=== PATIENT | female | born 1995 | race Caucasian/White ===

== ENCOUNTER 2019-02-01 17:20 | Emergency (ER) | payer BC ==
[2019-02-01] MEDS ORDERED: NA CHLORIDE 0.9% 1,000 ML ONE (18:06)
[2019-02-01 18:13] LABS: Absolute Lymphocytes (CBC) 3.3 K/uL (0.7-4.9); Basophils % 1.3 % (0-1.3); Eosinophils % 2.2 % (0-4.4); Hematocrit 40.7 % (36.0-45.0); Lymphocytes % 42.8 % (15.3-44.8); MPV 8.3 fL (7.6-11.3); Monocytes % 9.8 % (3.3-12.3); RBC Red Blood Cell Count 4.48 M/uL (3.86-4.86)
[2019-02-01 18:32] LABS: BUN Blood Urea Nitrogen 12 mg/dL (7-18); Bicarbonate 26 mmol/L (21-32); Glucose Level 87 mg/dL (74-106); Potassium 3.6 mmol/L (3.5-5.1); Sodium Level 143 mmol/L (136-145)
[2019-02-01 18:43] LABS: HCG, Quantitative < 1 mIU/mL (1-3)
[2019-02-01 18:45] LABS: Urine Blood 3+ (NEG); Urine Glucose NEGATIVE (NEG); Urine Protein 2+ (NEG); Urine Specific Gravity 1.025 (1.005-1.030)
--- NOTE | 2019-02-01 19:04 | ER ---
Nurse's Notes [facility] Name: Konstantin Ferguson Age: 23 yrs Sex: Female : 1995 Arrival Date: 02/01/2019 Time: 17:24 Bed 25 Private MD: Diagnosis: Dysmenorrhea, unspecified Presentation: 02/01 17:29 Presenting complaint: Patient states: LMP- 12/29/18; i took a home test Thursday and it says positive; and i started spotting yesterday and today its getting heavier, i noticed blood clot; reports lower back pain;. Transition of care: patient was not received from another setting of care. Onset of symptoms was February 01, 2019. Risk Assessment: Do you want to hurt yourself or someone else? Patient reports no desire to harm self or others. Initial Sepsis Screen: Does the patient meet any 2 criteria? No. Patient's initial sepsis screen is negative. Does the patient have a suspected source of infection? No. Patient's initial sepsis screen is negative. Care prior to arrival: None. 17:29 Method Of Arrival: Ambulatory 17:29 Acuity: JACEY 3 Triage Assessment: 17:50 General: Behavior is calm, cooperative. 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 - Social history:: Smoking status: unknown. - Family history:: not pertinent. - Ebola Screening: : No symptoms or risks identified at this time. Screenin:00 Abuse screen: Denies threats or abuse. Denies injuries from another. Nutritional mg2 screening: No deficits noted. Tuberculosis screening: No symptoms or risk factors identified. Fall Risk IV access (20 points). Assessment: 18:57 Obstetrical Assessment: General assessment: awake and alert. General: Appears in no mg2 apparent distress. comfortable. Pain: Complains of pain in back Pain does not radiate. Pain currently is 2 out of 10 on a pain scale. Quality of pain is described as aching, crampy, Pain began 1 day ago. Neuro: Level of Consciousness is awake, alert, obeys commands, Oriented to person, place, time, situation. Cardiovascular: Capillary refill < 3 seconds Patient's skin is warm and dry. Respiratory: Airway is patent Respiratory effort is even, unlabored, Respiratory pattern is regular, symmetrical. GI: No signs and/or symptoms were reported involving the gastrointestinal system. : Reports vaginal bleeding that is light flow, spotty, since morning. EENT: No signs and/or symptoms were reported regarding the EENT system. Derm: Skin is intact, is healthy with good turgor, Skin is pink, warm \T\ dry. normal. 19:27 Reassessment: Patient appears in no apparent distress at this time. Patient denies pain mg2 at this time. Vital Signs: 17:31 BP 110 / 61; Pulse 86; Resp 18; Temp 98.2(O); Pulse Ox 99% on R/A; Weight 89.81 kg; hj Height 5 ft. 3 in. (160.02 cm); Pain 5/10; 19:27 BP 120 / 78; Pulse 85; Resp 18; Temp 98; Pulse Ox 100% on R/A; Pain 0/10; mg2 17:31 Body Mass Index 35.07 (89.81 kg, 160.02 cm) hj Vitals: 19:30 Heart Tones not done. mg2 ED Course: 17:24 Patient arrived in ED. rg4 17:30 Triage completed. hj 17:31 Arm band placed on right wrist. hj 17:39 Dev Perdue MD is Attending Physician. katelyn 17:49 Jhoan Lewis RN is Primary Nurse. mg2 17:50 Patient has correct armband on for positive identification. mg2 18:04 No provider procedures requiring assistance completed. Inserted saline lock: 20 gauge mg2 in left antecubital area, using aseptic technique. Blood collected. 18:10 Radiology exam delayed due to lab results not completed at this time. (HCG). aa4 18:55 Transvaginal Ob In Process Unspecified. EDMS 19:01 Sami Singleton MD is Referral Physician. katelyn 19:29 IV discontinued, intact, bleeding controlled, No redness/swelling at site. Pressure mg2 dressing applied. Administered Medications: 18:04 Drug: NS 0.9% 1000 ml Route: IV; Rate: 1 bolus; Site: left antecubital; mg2 19:00 Follow up: Response: No adverse reaction; IV Status: Completed infusion; IV Intake: mg2 1000ml Point of Care Testing: Urine : 18:50 hCG Reading: Negative; Control Reading: Positive; mg2 Intake: 19:00 IV: 1000ml; Total: 1000ml. mg2 Outcome: 19:03 Discharge ordered by . katelyn 19:29 Discharged to home ambulatory, with family. mg2 19:29 Condition: stable 19:29 Discharge instructions given to patient, Instructed on discharge instructions, follow up and referral plans. medication usage, Demonstrated understanding of instructions, follow-up care, medications, Prescriptions given X 1. 19:31 Patient left the ED. mg2 Signatures: Dispatcher [employer] EDMS Dev Perdue MD MD cha Frazier, Amanda aa4 Meng Manley, CAITLIN RN Paulina Bradley rg4 Jhoan Lewis RN RN mg2 Corrections: (The following items were deleted from the chart) 17:33 17:31 Pulse 86bpm; Resp 18bpm; Pulse Ox 99% RA; Temp 98.2F Oral; 89.81 kg; Height 5 ft. hj 3 in.; BMI: 35.0; Pain 5/10; hj
--- NOTE | 2019-02-01 19:04 | EDPHYS ---
Physician Documentation [facility] Name: Konstantin Ferguson Age: 23 yrs Sex: Female : 1995 Arrival Date: 02/01/2019 Time: 17:24 Bed 25 Private MD: ED Physician Dev Perdue HPI: 02/01 18:05 This 23 yrs old Female presents to ER via Ambulatory with complaints of katelyn Vaginal Bleeding, + Preg <12wks. 18:05 The patient presents to the emergency department with vaginal bleeding. The estimated katelyn gestational age is 3 weeks. course: care: none. The patient has not experienced similar symptoms in the past. 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 - Social history:: Smoking status: unknown. - Family history:: not pertinent. - Ebola Screening: : No symptoms or risks identified at this time. ROS: 18:05 Constitutional: Negative for fever, chills, and weight loss, Eyes: Negative for injury, katelyn pain, redness, and discharge, ENT: Negative for injury, pain, and discharge, Neck: Negative for injury, pain, and swelling, Cardiovascular: Negative for chest pain, palpitations, and edema, Respiratory: Negative for shortness of breath, cough, wheezing, and pleuritic chest pain, Abdomen/GI: Negative for abdominal pain, nausea, vomiting, diarrhea, and constipation, Back: Negative for injury and pain, MS/Extremity: Negative for injury and deformity, Skin: Negative for injury, rash, and discoloration, Neuro: Negative for headache, weakness, numbness, tingling, and seizure, Psych: Negative for depression, anxiety, suicide ideation, homicidal ideation, and hallucinations, Allergy/Immunology: Negative for hives, rash, and allergies, Endocrine: Negative for neck swelling, polydipsia, polyuria, polyphagia, and marked weight changes, Hematologic/Lymphatic: Negative for swollen nodes, abnormal bleeding, and unusual bruising. 18:05 : Positive for vaginal bleeding. Exam: 18:05 Constitutional: This is a well developed, well nourished patient who is awake, alert, katelyn and in no acute distress. Head/Face: Normocephalic, atraumatic. Eyes: Pupils equal round and reactive to light, extra-ocular motions intact. Lids and lashes normal. Conjunctiva and sclera are non-icteric and not injected. Cornea within normal limits. Periorbital areas with no swelling, redness, or edema. ENT: Nares patent. No nasal discharge, no septal abnormalities noted. Tympanic membranes are normal and external auditory canals are clear. Oropharynx with no redness, swelling, or masses, exudates, or evidence of obstruction, uvula midline. Mucous membranes moist. Neck: Trachea midline, no thyromegaly or masses palpated, and no cervical lymphadenopathy. Supple, full range of motion without nuchal rigidity, or vertebral point tenderness. No Meningismus. Chest/axilla: Normal chest wall appearance and motion. Nontender with no deformity. No lesions are appreciated. Cardiovascular: Regular rate and rhythm with a normal S1 and S2. No gallops, murmurs, or rubs. Normal PMI, no JVD. No pulse deficits. Respiratory: Lungs have equal breath sounds bilaterally, clear to auscultation and percussion. No rales, rhonchi or wheezes noted. No increased work of breathing, no retractions or nasal flaring. Abdomen/GI: Soft, non-tender, with normal bowel sounds. No distension or tympany. No guarding or rebound. No evidence of tenderness throughout. Back: No spinal tenderness. No costovertebral tenderness. Full range of motion. Skin: Warm, dry with normal turgor. Normal color with no rashes, no lesions, and no evidence of cellulitis. MS/ Extremity: Pulses equal, no cyanosis. Neurovascular intact. Full, normal range of motion. Neuro: Awake and alert, GCS 15, oriented to person, place, time, and situation. Cranial nerves II-XII grossly intact. Motor strength 5/5 in all extremities. Sensory grossly intact. Cerebellar exam normal. Normal gait. Psych: Awake, alert, with orientation to person, place and time. Behavior, mood, and affect are within normal limits. Vital Signs: 17:31 BP 110 / 61; Pulse 86; Resp 18; Temp 98.2(O); Pulse Ox 99% on R/A; Weight 89.81 kg; Height 5 ft. 3 in. (160.02 cm); Pain 5/10; 19:27 BP 120 / 78; Pulse 85; Resp 18; Temp 98; Pulse Ox 100% on R/A; Pain 0/10; mg2 17:31 Body Mass Index 35.07 (89.81 kg, 160.02 cm) hj MDM: 17:39 Patient medically screened. [facility] 18:09 Data reviewed: vital signs, nurses notes, lab test result(s), radiologic studies, [facility] ultrasound. 02/01 17:43 Order name: Quantitative Hcg; Complete Time: 18:57 [facility] 02/01 17:43 Order name: Abo/rh Typing [facility] 02/01 17:43 Order name: Basic Metabolic Panel; Complete Time: 18:57 [facility] 02/01 17:43 Order name: CBC with Diff; Complete Time: 18:57 [facility] 02/01 18:25 Order name: Urine Dipstick--Ancillary (enter results); Complete Time: 18:57 02/01 18:25 Order name: Urine --Ancillary (enter results); Complete Time: 18:57 02/01 17:33 Order name: Urine Dipstick-Ancillary (obtain specimen); Complete Time: 18:04 02/01 17:33 Order name: Urine Test (obtain specimen); Complete Time: 18:04 02/01 17:43 Order name: IV Saline Lock; Complete Time: 18:04 [facility] 02/01 17:43 Order name: Labs collected and sent; Complete Time: 18:04 [facility] 02/01 17:43 Order name: NPO; Complete Time: 18:04 [facility] 02/01 17:43 Order name: US Transvaginal Ob [facility] Administered Medications: 18:04 Drug: NS 0.9% 1000 ml Route: IV; Rate: 1 bolus; Site: left antecubital; mg2 19:00 Follow up: Response: No adverse reaction; IV Status: Completed infusion; IV Intake: mg2 1000ml Point of Care Testing: Urine : 18:50 hCG Reading: Negative; Control Reading: Positive; mg2 Disposition: 02/01/19 19:03 Discharged to Home. Impression: Dysmenorrhea, unspecified. - Condition is Stable. - Discharge Instructions: Vaginal Bleeding During , First Trimester, Pelvic Rest. - Prescriptions for Vitamin 27- 0.8 mg Oral Tablet - take 1 tablet by ORAL route once daily; 30 tablet. - Medication Reconciliation Form, Thank You Letter, Antibiotic Education, Prescription Opioid Use form. - Follow up: Private Physician; When: 2 - 3 days; Reason: Recheck today's complaints, Continuance of care, Re-evaluation by your physician. Follow up: Sami Singleton MD; When: 2 - 3 days; Reason: Recheck today's complaints, Re-evaluation by your physician. - Problem is new. - Symptoms have improved. Signatures: Dispatcher [employer] EDWV Dev Perdue MD MD cha Joaquin, Henry RN RN hj Jhoan Lewis RN RN mg2 Corrections: (The following items were deleted from the chart) 19:31 19:03 02/01/2019 19:03 Discharged to Home. Impression: Dysmenorrhea, unspecified. mg2 Condition is Stable. Discharge Instructions: Threatened Miscarriage, Vaginal Bleeding During , First Trimester, First Trimester of , [id number], Threatened Miscarriage, [id number], Pelvic Rest. Prescriptions for Vitamin 27-0.8 mg Oral Tablet - take 1 tablet by ORAL route once daily; 30 tablet. and Forms are Medication Reconciliation Form, Thank You Letter, Antibiotic Education, Prescription Opioid Use. Follow up: Private Physician; When: 2 - 3 days; Reason: Recheck today's complaints, Continuance of care, Re-evaluation by your physician. Follow up: Sami Singleton; When: 2 - 3 days; Reason: Recheck today's complaints, Re-evaluation by your physician. Problem is new. Symptoms have improved. katelyn
--- NOTE | 2019-02-01 19:10 | RAD REPORT ---
EXAM DESCRIPTION: US - Transvaginal OB - 02/01/2019 7:02 pm CLINICAL HISTORY: ABD CRAMPING, Pelvic pain. COMPARISON: No comparisons FINDINGS: The uterus is normal in size, shape and echotexture. The uterus measures 8.2 x 6.0 x 4.5 c m. No evidence IUP seen. The endometrial stripe measures 5 mm, normal. Both ovaries are normal in size, shape and echotexture. The right ovary measures 2.9 x 2.2 x 1.6 cm. The left ovary measures 3.8 x 1.7 x 1.6 cm. No ovarian or parovarian lesions. No adnexal masses. Normal Doppler blood flow was demonstrated to both ovaries. No significant pelvic ascites. IMPRESSION: Unremarkable study.
== END 2019-02-01 19:31 | disposition home or self-care (01) ==
LOC: ER 17:20
DX: O20.9 Hemorrhage in early pregnancy, unspecified (principal); O26.891 Other specified pregnancy related conditions, first trimester; N94.6 Dysmenorrhea, unspecified; Z3A.01 Less than 8 weeks gestation of pregnancy
CPT/HCPCS: 36415; 76817; 80048; 81003; 81025; 84702; 85025; 86900; 86901; 96360; 99284; J7030

== ENCOUNTER 2022-03-16 13:17 | Emergency (ER) | payer OTHER ==
--- NOTE | 2022-03-16 13:41 | ER ---
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 Thinks it might be a anxiety attack, just wants to make sure. Lots of stressors in her life, but denies SI or HI. Coronavirus screen: Vaccine status: Patient reports receiving the 2nd dose of the covid vaccine. Client denies travel out of the [place] in the last 14 days. At this time, the client does not indicate any symptoms associated with coronavirus-19. Ebola Screen: Patient denies travel to an Ebola-affected area in the 21 days before illness onset. Initial Sepsis Screen: Does the patient meet any 2 criteria? No. Patient's initial sepsis screen is negative. Does the patient have a suspected source of infection? No. Patient's initial sepsis screen is negative. Risk Assessment: Do you want to hurt yourself or someone else? Patient reports no desire to harm self or others. Onset of symptoms was March 16, 2022. 13:30 Method Of Arrival: Ambulatory ll1 13:30 Acuity: JACEY 4 ll1 Triage Assessment: 13:32 General: Appears uncomfortable, Behavior is cooperative, appropriate for age, anxious. ll1 Pain: Denies pain. Neuro: Reports. Cardiovascular: Reports chest pain, fatigue, lightheadedness, nausea, shortness of breath. GI: Reports nausea. Historical: - Allergies: 13:29 Anesthesia; ll1 - PMHx: 13:29 None; ll1 - Immunization history:: Client reports receiving the 1st dose of the Covid vaccine. - Social history:: Smoking status: Patient denies any tobacco usage or history of. Vital Signs: 13:30 BP 111 / 70; Pulse 88; Resp 17; Temp 98.1; Pulse Ox 100% ; Weight 80.74 kg; Height 5 ll1 ft. 3 in. (160.02 cm); Pain 0/10; 13:30 Body Mass Index 31.53 (80.74 kg, 160.02 cm) 1 ED Course: 13:19 Patient arrived in ED. mr 13:19 Todd Sanchez MD is Private Physician. mr 13:23 [facility] F[facility] jh7 13:23 Tami Hudson MD is Attending Physician. 7 13:30 Arm band placed on. EKG completed in triage. Results shown to MD. 1 13:32 Triage completed. 1 13:40 Todd Sanchez MD is Referral Physician. [facility] 13:42 EKG done, by ED staff, reviewed by Laila THURMAN. [facility] Administered Medications: No medications were administered Outcome: 13:40 Discharge ordered by . [facility] 14:20 Patient left the ED. 1 Signatures: Thu Gomez Lynsay, RN RN 1 Thu Xavier 7 Laila Sam FNP DIGITAL ASSOCIATE MEDIA DIRECTOR [facility]
--- NOTE | 2022-03-16 13:41 | EDPHYS ---
Physician Documentation [facility] Name: Konstantin Ferguson Age: 26 yrs Sex: Female : 1995 Arrival Date: 03/16/2022 Time: 13:19 Bed Waiting Private MD: Todd Sanchez ED Physician Tami Hudson HPI: 03/16 13:35 This 26 yrs old Female presents to ER via Ambulatory with complaints of Chest jh7 Pain. 13:35 Onset: The symptoms/episode began/occurred acutely. Associated signs and symptoms: jh7 Pertinent positives: Dizziness, nausea, shortness of breath. Patient reports that she was exercising and then suddenly became emotional, and developed chest pain, shortness of breath, dizziness, and nausea. Reports that she has a lot of stressors right now. Symptoms have just resolved. No past medical history.. Historical: - Allergies: 13:29 Anesthesia; ll1 - PMHx: 13:29 None; ll1 - Immunization history:: Client reports receiving the 1st dose of the Covid vaccine. - Social history:: Smoking status: Patient denies any tobacco usage or history of. ROS: 13:35 Constitutional: Negative for fever, chills, and weight loss, Neck: Negative for injury, jh7 pain, and swelling, Cardiovascular: Negative for chest pain, palpitations, and edema, Respiratory: Negative for shortness of breath, cough, wheezing, and pleuritic chest pain, Abdomen/GI: Negative for abdominal pain, nausea, vomiting, diarrhea, and constipation, Back: Negative for injury and pain, Skin: Negative for injury, rash, and discoloration, Neuro: Negative for headache, weakness, numbness, tingling, and seizure. 13:35 Constitutional: 13:35 All other systems are negative. Exam: 13:35 Head/Face: Normocephalic, atraumatic. Eyes: Pupils equal round and reactive to light, jh7 extra-ocular motions intact. Lids and lashes normal. Conjunctiva and sclera are non-icteric and not injected. Cornea within normal limits. Periorbital areas with no swelling, redness, or edema. Neck: Trachea midline, no thyromegaly or masses palpated, and no cervical lymphadenopathy. Supple, full range of motion without nuchal rigidity, or vertebral point tenderness. No Meningismus. Cardiovascular: Regular rate and rhythm with a normal S1 and S2. No gallops, murmurs, or rubs. Normal PMI, no JVD. No pulse deficits. Respiratory: Lungs have equal breath sounds bilaterally, clear to auscultation and percussion. No rales, rhonchi or wheezes noted. No increased work of breathing, no retractions or nasal flaring. Abdomen/GI: Soft, non-tender, with normal bowel sounds. No distension or tympany. No guarding or rebound. No evidence of tenderness throughout. Back: No spinal tenderness. No costovertebral tenderness. Full range of motion. Skin: Warm, dry with normal turgor. Normal color with no rashes, no lesions, and no evidence of cellulitis. Neuro: Awake and alert, GCS 15, oriented to person, place, time, and situation. Sensory grossly intact. Normal gait. 13:35 Constitutional: The patient appears alert, awake, Tearful 13:35 ECG was reviewed by the Attending Physician. Vital Signs: 13:30 BP 111 / 70; Pulse 88; Resp 17; Temp 98.1; Pulse Ox 100% ; Weight 80.74 kg; Height 5 ll1 ft. 3 in. (160.02 cm); Pain 0/10; 13:30 Body Mass Index 31.53 (80.74 kg, 160.02 cm) ll1 MDM: 13:35 Differential diagnosis: Anxiety, panic attack, chest wall pain. Data reviewed: vital [facility] signs, nurses notes, EKG. Data interpreted: Pulse oximetry: is 100 %. Interpretation: normal. Test interpretation: by ED physician or midlevel provider: ECG. Counseling: I had a detailed discussion with the patient and/or guardian regarding: the historical points, exam findings, and any diagnostic results supporting the discharge/admit diagnosis, to return to the emergency department if symptoms worsen or persist or if there are any questions or concerns that arise at home. 13:40 Patient medically screened. [facility] 03/16 13:33 Order name: EKG; Complete Time: 13:34 ll1 03/16 13:33 Order name: EKG - Nurse/Tech; Complete Time: 13:33 ll1 EC:35 Rate is 95 beats/min. Rhythm is regular. QRS [place] is Normal. [place] interval is normal at [facility] 136 msec. QRS interval is normal at 80 msec. QT interval is normal at 354 msec. No Q waves. T waves are Normal. No ST changes noted. Clinical impression: Normal ECG. Administered Medications: No medications were administered Disposition Summary: 03/16/22 13:40 Discharge Ordered Location: Home [facility] Problem: new [facility] Symptoms: have improved [facility] Condition: Stable [facility] Diagnosis - Anxiety disorder, unspecified [facility] Followup: [facility] - With: Todd Sanchez MD - When: 1 - 2 days - Reason: Recheck today's complaints Discharge Instructions: - Discharge Summary Sheet [facility] - Panic Attack [facility] - Generalized Anxiety Disorder, Adult [facility] Forms: - Medication Reconciliation Form [facility] - Thank You Letter [facility] Signatures: Marla Marquez RN RN ll1 Laila Sam FNP FNP [facility]
[2022-03-16 14:38] VITALS: BP 111/70; TEMP 98.1; O2SAT 100
--- NOTE | 2022-03-17 12:21 | EKG ---
Test Date: 2022-03-16 Test Time: 13:30:07 Dry Clipper Tender: MB MEASUREMENT RESULTS: Intervals: Rate: 95 HI: 136 QRSD: 80 QT: 354 QTc: 444 [place]: P: 41 HI: 136 QRS: 81 T: 57 INTERPRETIVE STATEMENTS: Normal sinus rhythm Normal ECG No previous ECG available for comparison Electronically Signed On 03-17-22 12:20:23 CDT by David Jernigan
== END 2022-03-16 14:20 | disposition home or self-care (01) ==
LOC: ER 13:17
DX: F41.9 Anxiety disorder, unspecified (principal); Z88.4 Allergy status to anesthetic agent
CPT/HCPCS: 93005; 99284